=== PATIENT | female | born 1980 | race Two or more races ===

== ENCOUNTER 2017-06-10 08:27 | Outpatient (CLI) | payer OTHER | END 2017-06-10 09:52 | disposition home or self-care (01) | LOC: SONOGRAMA 08:27 | DX: R10.2 Pelvic and perineal pain (principal); R10.11 Right upper quadrant pain; E55.9 Vitamin D deficiency, unspecified; N60.11 Diffuse cystic mastopathy of right breast; N60.12 Diffuse cystic mastopathy of left breast; N83.292 Other ovarian cyst, left side; N83.291 Other ovarian cyst, right side; N83.9 Noninflammatory disorder of ovary, fallopian tube and broad ligament, unspecified; N94.10 Unspecified dyspareunia; R87.610 Atypical squamous cells of undetermined significance on cytologic smear of cervix (ASC-US); Z80.0 Family history of malignant neoplasm of digestive organs ==

== ENCOUNTER → 2018-11-06 | Outpatient (CLI) | payer OTHER | END | disposition home or self-care (01) | LOC: RAD 16:46 | DX: M79.604 Pain in right leg (principal) ==

== ENCOUNTER 2018-11-13 14:58 | Outpatient (CLI) | payer OTHER | END 2018-11-13 15:06 | disposition home or self-care (01) | LOC: LAB 14:58 | DX: M79.604 Pain in right leg (principal); Z13.828 Encounter for screening for other musculoskeletal disorder ==

== ENCOUNTER 2018-11-16 09:06 | Outpatient (CLI) | payer OTHER | END 2018-11-16 09:11 | disposition home or self-care (01) | LOC: LAB 09:06 | DX: J11.89 Influenza due to unidentified influenza virus with other manifestations (principal); J06.9 Acute upper respiratory infection, unspecified ==

== ENCOUNTER → 2019-12-10 07:00 | Outpatient (CLI) | payer OTHER | END | disposition home or self-care (01) | LOC: PPH VACUNA 07:00 | DX: Z23 Encounter for immunization (principal) ==

== ENCOUNTER 2020-03-17 15:43 | Outpatient (CLI) | payer OTHER | END 2020-03-17 15:46 | disposition HB | LOC: RAD 15:43 | DX: N20.0 Calculus of kidney (principal) ==

== ENCOUNTER 2020-04-07 12:22 | Outpatient (CLI) | payer OTHER | END 2020-04-07 12:30 | disposition home or self-care (01) | LOC: SONOGRAMA 12:22 | PROVIDERS: ATTEND Obstetrics & Gynecology Gynecology | DX: R10.11 Right upper quadrant pain (principal); N83.292 Other ovarian cyst, left side; N83.291 Other ovarian cyst, right side; N60.11 Diffuse cystic mastopathy of right breast; N60.12 Diffuse cystic mastopathy of left breast ==

== ENCOUNTER 2020-12-11 08:00 | Outpatient (CLI) | payer OTHER | END 2020-12-11 08:30 | disposition home or self-care (01) | LOC: PPH VACUNA 08:00 | PROVIDERS: ATTEND Emergency Medicine Pediatric Emergency Medicine | DX: Z23 Encounter for immunization (principal) ==

== ENCOUNTER 2020-12-24 10:00 | Outpatient (CLI) | payer OTHER | END 2020-12-24 10:05 | disposition home or self-care (01) | LOC: PPH VACUNA 10:00 | PROVIDERS: ATTEND Emergency Medicine Pediatric Emergency Medicine | DX: Z23 Encounter for immunization (principal) ==

== ENCOUNTER 2021-03-26 07:30 | Emergency (ER) | payer OTHER ==
[~2021-03-26] VITALS: Ht 154.9 cm; Wt 46.3 kg
[2021-03-26] MEDS ORDERED: AZELASTIN-FLUTI23 GM NS (07:43)
[2021-03-26] MEDS ORDERED: ZITHROMAX TRI-500 MG PO (10:29)
== END 2021-03-26 10:42 | disposition home or self-care (01) ==
LOC: ER 07:30
DX: B34.9 Viral infection, unspecified (principal); Z20.822 Contact with and (suspected) exposure to COVID-19

== ENCOUNTER 2021-11-08 09:37 | Outpatient (CLI) | payer OTHER ==
[~2021-11-08 09:37] MED LIST: AZELASTIN-FLUTI23 GM NS; ZITHROMAX TRI-500 MG PO
== END 2021-11-08 09:41 | disposition home or self-care (01) ==
LOC: SONOGRAMA 09:37
PROVIDERS: ATTEND Obstetrics & Gynecology Gynecology
DX: N84.0 Polyp of corpus uteri (principal)

== ENCOUNTER 2021-12-01 14:55 | Outpatient (CLI) | payer OTHER | END 2021-12-01 15:15 | disposition home or self-care (01) | LOC: RAD 14:55 | PROVIDERS: ATTEND Obstetrics & Gynecology Gynecology | DX: Z01.818 Encounter for other preprocedural examination (principal); J41.1 Mucopurulent chronic bronchitis ==

== ENCOUNTER 2021-12-08 10:34 | Outpatient (CLI) | payer OTHER | END 2021-12-08 10:39 | disposition home or self-care (01) | LOC: PPH VACUNA 10:34 | PROVIDERS: ATTEND Emergency Medicine Pediatric Emergency Medicine | DX: Z23 Encounter for immunization (principal) ==

== ENCOUNTER 2022-04-28 07:57 | Outpatient (CLI) | payer OTHER | END 2022-04-28 08:05 | disposition home or self-care (01) | LOC: TOM 07:57 | PROVIDERS: ATTEND General Practice | DX: R42 Dizziness and giddiness (principal); R51.9 Headache, unspecified ==

== ENCOUNTER 2022-11-25 08:15 | Outpatient (CLI) | payer OTHER | END 2022-11-25 08:25 | disposition home or self-care (01) | LOC: PPH VACUNA 08:15 | PROVIDERS: ATTEND Emergency Medicine Pediatric Emergency Medicine | DX: Z23 Encounter for immunization (principal) ==

== ENCOUNTER 2023-05-15 16:53 | Outpatient (CLI) | payer OTHER ==
[2023-05-15 17:24] LABS: HEMATOCRIT 35.6 % (36.0-45.00); MEAN CELL VOLUME 91.2 fL (80.00-100.00); MEAN CORPUSCULAR HEMOGLOBIN 30.9 pg (27.00-32.0); MEAN CORPUSCULAR HGB CONC 33.9 g/dl (32.0-36.0); PLATELET COUNT 220 K/uL (150-450); RED CELL DISTRIBUTION WIDTH 13.9 % (11.5-14.5)
[2023-05-15 17:28] LABS: PH,URINE 7.5 (5.0-8.0); URINE APPEARANCE Cloudy; URINE BILIRRUBIN Negative (NEGATIVE); URINE BLOOD Moderate; URINE COLOR Yellow; URINE GLUCOSE Negative (NEGATIVE); URINE LEUKOCYTE Negative; URINE NITRATE Negative; URINE PROTEIN Negative (NEGATIVE); URINE UROBILINOGEN 0.2 E.U./dl
[2023-05-15 17:31] LABS: URINE BACTERIA 37.7 uL (0.0-1933); URINE EPITHELIAL CELLS 6.7 uL (0.0-38.8); URINE RBC 60.4 uL (0.0-20.8); URINE WBC 7.5 uL (0.0-23.2)
== END 2023-05-15 17:02 | disposition home or self-care (01) ==
LOC: LAB 16:53
PROVIDERS: ATTEND Internal Medicine
DX: N39.0 Urinary tract infection, site not specified (principal)

== ENCOUNTER 2023-05-19 07:23 | Outpatient (CLI) | payer OTHER | END 2023-05-19 07:33 | disposition home or self-care (01) | LOC: SONOGRAMA 07:23 | PROVIDERS: ATTEND Physical Medicine & Rehabilitation | DX: N20.0 Calculus of kidney (principal); Z88.6 Allergy status to analgesic agent ==

== ENCOUNTER 2023-05-26 09:42 | Emergency (ER) | payer OTHER ==
[~2023-05-26] VITALS: Ht 154.9 cm; Wt 49.9 kg
[2023-05-26] MEDS ORDERED: MEPERIDINE HCL/PF 50 MG/ML VIAL IM STA (10:30)
[2023-05-26] MEDS ORDERED: PROMETHAZINE HCL 50 MG/ML AMPUL IM STA (10:31)
[2023-05-26 10:53] LABS: URINE APPEARANCE Clear; URINE BILIRRUBIN Negative (NEGATIVE); URINE BLOOD Large; URINE COLOR Yellow; URINE GLUCOSE Negative (NEGATIVE); URINE LEUKOCYTE Negative; URINE NITRATE Negative; URINE PROTEIN Negative (NEGATIVE); URINE UROBILINOGEN 0.2 E.U./dl
[2023-05-26 10:58] LABS: URINE BACTERIA 391.8 uL (0.0-1933); URINE EPITHELIAL CELLS 25.1 uL (0.0-38.8); URINE RBC 724.6 uL (0.0-20.8); URINE WBC 8.6 uL (0.0-23.2)
[2023-05-26 11:04] LABS: HEMATOCRIT 35.9 % (36.0-45.00); HEMOGLOBIN 12.1 g/dL (12.0-15.00); MEAN CELL VOLUME 92.2 fL (80.00-100.00); MEAN CORPUSCULAR HEMOGLOBIN 31.1 pg (27.00-32.0); MEAN CORPUSCULAR HGB CONC 33.7 g/dl (32.0-36.0); PLATELET COUNT 259 K/uL (150-450); RED CELL DISTRIBUTION WIDTH 14.1 % (11.5-14.5)
[2023-05-26 11:50] LABS: ANION GAP 6 (10.0-20.0); BLOOD UREA NITROGEN 11 mg/dL (7-18); BUN CREA RATIO 18 (7.0-25.0); CALCIUM 8.7 mg/dL (8.5-10.1); CARBON DIOXIDE 28 mEq/L (21-32); CHLORIDE 108 mmol/L (98-107); GFR 110.72; GLUCOSE FASTING 104 mg/dL (65-100); OSMOLALITY SERUM 275 MOSM/KG (275-295); POTASSIUM 3.81 mEq/L (3.5-5.1); SODIUM 138 mmol/L (136-145)
[2023-05-26 12:16] LABS: HCG QUANTITATIVE < 1 mUI/mL (1-3)
== END 2023-05-26 12:41 | disposition home or self-care (01) ==
LOC: ER 09:43
PROVIDERS: General Practice
DX: E28.2 Polycystic ovarian syndrome (principal)

== ENCOUNTER 2023-07-06 07:27 | Outpatient (CLI) | payer OTHER | END 2023-07-06 08:25 | disposition home or self-care (01) | LOC: RAD 07:27 | PROVIDERS: ATTEND Urology | DX: N20.0 Calculus of kidney (principal); R10.10 Upper abdominal pain, unspecified; R31.29 Other microscopic hematuria; R31.0 Gross hematuria ==

== ENCOUNTER 2023-07-06 14:28 | Outpatient (CLI) | payer OTHER | END 2023-07-06 14:30 | disposition home or self-care (01) | LOC: LAB 14:28 | PROVIDERS: ATTEND Internal Medicine Hematology & Oncology | DX: E21.3 Hyperparathyroidism, unspecified (principal) ==

== ENCOUNTER 2023-09-12 14:38 | Emergency (ER) | payer OTHER ==
[~2023-09-12] VITALS: Ht 154.9 cm; Wt 49.0 kg
[2023-09-12] MEDS ORDERED: GUAIFENESIN 200 MG/10 ML BLIST.PACK PO STA (17:27)
[2023-09-12] MEDS ORDERED: DEXAMETHASONE SODIUM PHOSPHATE 4 MG/ML VIAL IM STA (17:27)
[2023-09-12] MEDS ORDERED: ZYRTEC10 MG PO (17:32)
[2023-09-12] MEDS ORDERED: DEXAMETHASONE4 MG PO (17:32)
[2023-09-12] MEDS ORDERED: SINGULAIR10 MG PO (17:32)
[2023-09-12] MEDS ORDERED: MUCINEX DM ER1 EACH PO (17:32)
[2023-09-12] MEDS ORDERED: BENZONATATE200 M1 PO (17:32)
[2023-09-12] MEDS ORDERED: DEXAMETHASONE SODIUM PHOSPHATE 4 MG/ML VIAL ONE (17:36)
[2023-09-12] MEDS ORDERED: GUAIFENESIN 200 MG/10 ML BLIST.PACK PO ONE (17:37)
== END 2023-09-12 17:45 | disposition home or self-care (01) ==
LOC: ER 14:39
DX: J06.9 Acute upper respiratory infection, unspecified (principal); Z88.6 Allergy status to analgesic agent